=== PATIENT | male | born 1945 | race Caucasian/White ===

== ENCOUNTER → 2018-09-13 09:01 | Outpatient (CLI) | payer MEDICARE, SELFPAY | PROVIDERS: Family Provider Internal Medicine; PCP Internal Medicine; Referring Provider Internal Medicine Pulmonary Disease; Visit Provider Internal Medicine Pulmonary Disease | DX: J45.909 Unspecified asthma, uncomplicated (principal); Z87.898 Personal history of other specified conditions | CPT/HCPCS: 87070; 87205 ==

== ENCOUNTER 2018-09-18 14:06 | Emergency (ER) | payer MEDICARE, SELFPAY ==
[2018-09-18 14:09] VITALS: BP 151/88; PULSE 63; RESP 18; TEMP 36.8; O2SAT 96; BMI 30.1
--- NOTE | 2018-09-18 14:25 | CT_ITS ---
STUDY: CT MAXILLOFACIAL SINUSES REASON FOR EXAM: Male, 72 years old. Congestion and left ear pain RADIATION DOSAGE (If Supplied By Facility): CTDIvol = ( 29.38 ) mGy, DLP = ( 672.34 ) mGycm TECHNIQUE: The patient was scanned in a multi detector CT scanner. High resolution axial imaging was performed without the administration of intravenous contrast material. Sagittal and coronal images were reconstructed. Individualized dose optimization techniques were used for this CT. COMPARISON: None. FINDINGS: FRONTAL SINUSES: Frontal sinuses are clear. ETHMOIDAL SINUSES: Partial opacification of the ethmoid sinuses with aerosolized secretions. MAXILLARY SINUSES: Air-fluid levels in the maxillary sinuses with extensive mucoperiosteal thickening and partial opacification SPHENOIDAL SINUSES: Air-fluid levels in the sphenoid sinuses with aerosolized secretions and mucosal thickening Middle ear cavities and the mastoid air cells are clear. Visualized contents demonstrate no acute abnormalities no discrete orbital mass. Rightward deviation of the nasal septum with a spur encroaching on the right inferior turbinate Calcifications in the right maxillary sinus. Calcifications in the left parotid gland. 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 Electronically Signed: Cipriano Laird, at 16:11 EDT Tel , Service support , CT/Sinus/Facial Bone
[2018-09-18] MEDS: Morphine 4 MG/ML Syringe IV (14:46)
[2018-09-18] MEDS: Ondansetron 4 MG/2 ML Vial IV (14:46)
[2018-09-18 14:57] LABS: Erythrocyte Sedimentation Rate 7 mm/hr (0-20)
[2018-09-18 15:00] LABS: Hemoglobin 14.4 g/dl (13.0-16.5); Mean Corp Hgb Conc 32.7 g/gl (32-36); Mean Corpuscular Hgb 29.1 pg (27.0-32.0); Mean Corpuscular Volume 89.1 fL (80-94); Mean Platelet Vol. 11.4 fl (6.2-12.0); Platelet Count 206 K/mm3 (150-450); RBC Distribution Width SD 42.1 fl (35.1-43.9); Red Blood Count 4.94 M/mm3 (4.6-6.2); Scan Indicated on CBC? Y/N NO; White Blood Count 9.6 K/mm3 (4.4-11.0)
--- NOTE | 2018-09-18 16:32 | ED.VISSUMM ---
- ER Visit Summary Date of Service: 09/18/18 Chief Complaint: Face pain History of Present Illness: The patient is a 72 M with left face pain. No tenderness over the TMJ. No tenderness over the mastoid, he has been treated with doxycycline for an upper respiratory infection over the past few weeks. No fever chills shortness of breath or any other symptoms. Physical Examination: His tenderness is over the face region below the TMJ, there is no mastoid tenderness. He has a normal posterior oropharynx except for some postnasal drip. He has rhinorrhea and swollen nasal turbinates. He has got clear lungs bilaterally Emergency Department Course and Treatment: CT is consistent with pansinusitis which proved my clinical suspicion. He was on doxycycline however I believe this is inadequate for pansinusitis and an elderly gentleman. I will also follow him up with ear nose and throat. Placed on Augmentin. Disposition: Discharge stable condition Impression: Sinusitis This note was generated with [employer] dictation software. It may contain incorrect words, spelling, and punctuation that were not noted in review of the chart prior to signing ED Disposition - Plan for ED Patient: Disposition: Home or Assisted Living Instructions: Acute Sinusitis Prescriptions: Hydrocodone Bitart/Apap 5-325 [[place] 5MG-325MG] 1 tab PO Q4H PRN PRN 2 Days #10 tab PRN Reason: Pain Amox/Clavulanate Tablet [Augmentin Tablet] 875 mg PO Q12H #20 tab Referrals: Lissette Ledesma MD [Primary Care Provider] - 3-5 Days Suresh De La Cruz MD [STAFF PHYSICIAN] - 3-5 Days
--- NOTE | 2018-09-18 16:35 | ED.DCSUM_ITS ---
- ER Visit Summary Date of Service: 09/18/18 Chief Complaint: Face pain History of Present Illness: The patient is a 72 M with left face pain. No tenderness over the TMJ. No tenderness over the mastoid, he has been treated with doxycycline for an upper respiratory infection over the past few weeks. No fever chills shortness of breath or any other symptoms. Physical Examination: His tenderness is over the face region below the TMJ, there is no mastoid tenderness. He has a normal posterior oropharynx except for some postnasal drip. He has rhinorrhea and swollen nasal turbinates. He has got clear lungs bilaterally Emergency Department Course and Treatment: CT is consistent with pansinusitis which proved my clinical suspicion. He was on doxycycline however I believe this is inadequate for pansinusitis and an elderly gentleman. I will also follow him up with ear nose and throat. Placed on Augmentin. Disposition: Discharge stable condition Impression: Sinusitis This note was generated with [employer] dictation software. It may contain incorrect words, spelling, and punctuation that were not noted in review of the chart prior to signing ED Disposition - Plan for ED Patient: Disposition: Home or Assisted Living Instructions: Acute Sinusitis Prescriptions: Hydrocodone Bitart/Apap 5-325 [[place] 5MG-325MG] 1 tab PO Q4H PRN PRN 2 Days #10 tab PRN Reason: Pain Amox/Clavulanate Tablet [Augmentin Tablet] 875 mg PO Q12H #20 tab Referrals: Lissette Ledesma MD [Primary Care Provider] - 3-5 Days Suresh De La Cruz MD [STAFF PHYSICIAN] - 3-5 Days
[2018-09-18] MEDS: oxyCODONE 5 MG Tablet PO (17:08)
[2018-09-18 17:17] VITALS: BP 174/92; PULSE 81; RESP 18; O2SAT 94
== END 2018-09-18 17:18 | disposition home or self-care (01) ==
PROVIDERS: Emergency Provider Emergency Medicine; Family Provider Internal Medicine; PCP Internal Medicine
DX: J32.4 Chronic pansinusitis (principal); J84.10 Pulmonary fibrosis, unspecified; Z79.2 Long term (current) use of antibiotics; Z79.51 Long term (current) use of inhaled steroids; Z79.899 Other long term (current) drug therapy
CPT/HCPCS: 70486; 85027; 85652; 96374; 96375; 99284; A4216; J2405

== ENCOUNTER → 2018-12-07 07:51 | Outpatient (CLI) | payer MEDICARE, SELFPAY ==
[2018-12-07 10:25] LABS: Hemoglobin 14.8 g/dl (13.0-16.5); Mean Corp Hgb Conc 32.9 g/gl (32-36); Mean Corpuscular Hgb 28.5 pg (27.0-32.0); Mean Corpuscular Volume 86.5 fL (80-94); Mean Platelet Vol. 11.5 fl (6.2-12.0); Platelet Count 200 K/mm3 (150-450); RBC Distribution Width CV 13.3 % (11.6-14.6); RBC Distribution Width SD 41.2 fl (35.1-43.9); White Blood Count 7.1 K/mm3 (4.4-11.0)
[2018-12-07 10:26] LABS: Scan Indicated on CBC? Y/N NO
[2018-12-07 10:44] LABS: Hemoglobin A1c 5.5 % (4.2-6.3)
[2018-12-07 10:54] LABS: Homocysteine 10.9 umol/L (3.2-10.7)
[2018-12-07 11:22] LABS: Progesterone Level 0.14 ng/mL (See Comment); Vitamin B12 384 pg/mL (211-911); Vitamin D,25 Hydroxy 13.4 ng/mL (29.95-100.01)
[2018-12-07 11:37] LABS: AST(SGOT) 24 U/L (15-37); Alanine Aminotransfer ALT/SGPT 36 U/L (16-61); Albumin, Serum 3.6 g/dL (3.2-5.0); Alkaline Phosphatase 82 U/L (45-117); Anion Gap 7 (5-15); BUN 18 mg/dL (7-18); BUN/Creat Ratio 16.5 RATIO (10-20); CRP, High Sensitivity Cardiac 1.29 mg/L; Calcium,Total 8.7 mg/dL (8.5-10.1); Chloride 104 mmol/L (98-107); Cholesterol 195 mg/dL (200); Creatinine, Serum 1.09 mg/dL (0.70-1.30); EST Glomerular Filtration Rate 71 mL/min (>60); Est Glom Filt Rate - Afr Amer 86 mL/min (>60); Estradiol 29.7 pg/mL; Follicle Stimulating Hormone 4.7 mIU/mL; Free T3 2.2 pg/mL (2.18-3.98); Globulin 3.5 g/dL (2.2-4.2); Glucose 85 mg/dL (74-106); High Density Lipoprotein 48 mg/dL; Iron 84 ug/dL (65-175); PSA,Total - Annual Screen 9.64 ng/mL (0.00-4.00); Potassium 3.9 mmol/L (3.5-5.1); Prolactin 10.9 ng/mL; Protein, Total 7.1 g/dL (6.4-8.2); Sodium Level 140 mmol/L (136-145); T4 Free Direct 1.12 ng/dL (0.76-1.46); T4 Total, Thyroxin 9.8 ug/dL (4.5-12.1); Thyroid Stim Hormone (TSH) 2.88 uIU/mL (0.358-3.74); Triglycerides 108 mg/dL; Very Low Density Lipoprotein 22 mg/dL (5-40)
[2018-12-12 12:07] LABS: DHEA Sulfate 53.5 ug/dL (30.9-295.6); Insulin Like Growth Factor 134 ng/mL (41-179); Testosterone, % Free 1.52 % (1.50-4.20); Testosterone, Free 5.96 ng/dL (5.00-21.00)
[2018-12-12 12:29] LABS: Sex Hormone-binding Globulin 44.8 nmol/L (19.3-76.4); Testosterone, Total 392 ng/dL (264-916)
== END ==
PROVIDERS: Family Provider Internal Medicine; PCP Internal Medicine; Referring Provider Registered Nurse; Visit Provider Registered Nurse
DX: M62.81 Muscle weakness (generalized) (principal); R53.82 Chronic fatigue, unspecified; E66.9 Obesity, unspecified
CPT/HCPCS: 36415; 80053; 80061; 82306; 82533; 82607; 82627; 82670; 82746; 83001; 83002; 83036; 83090; 83540; 83735; 84144; 84146; 84153; 84270; 84305; 84402; 84403; 84436; 84439; 84443; 84481; 85027; 86141; 82626; G0103

== ENCOUNTER → 2019-03-27 | Outpatient (CLI) | payer MEDICARE, SELFPAY ==
--- NOTE | 2019-03-27 13:08 | RAD_ITS ---
STUDY: X-RAY CHEST REASON FOR EXAM: Male, 73 years old. Shortness of breath cough TECHNIQUE: Two view of the chest were performed COMPARISON: 17 December 2016 FINDINGS: Lungs are clear. There is no pneumothorax, pulmonary edema, pleural effusions or cardiomegaly. Osseous structures are intact. There is no gas under the diaphragms. [ ] RAD/Chest PA and Lateral IMPRESSION: 1. No acute cardiorespiratory disease. [ ] Electronically Signed: Rola Boogie, at 18:47 EDT Tel , Service support ,
== END | disposition home or self-care (01) ==
LOC: MTRAD 13:05
PROVIDERS: Family Provider Internal Medicine; PCP Internal Medicine; Referring Provider Internal Medicine Pulmonary Disease; Visit Provider Internal Medicine Pulmonary Disease
DX: J45.909 Unspecified asthma, uncomplicated (principal); R05 Cough
CPT/HCPCS: 71046

== ENCOUNTER 2019-07-16 22:33 | Emergency (ER) | payer MEDICARE, SELFPAY ==
[2019-07-16 22:34] VITALS: BP 133/79; PULSE 67; RESP 16; TEMP 36.5; O2SAT 96; BMI 31.8
--- NOTE | 2019-07-16 22:54 | EKG12_ITS ---
Test Reason : ABDOMINAL PAIN Blood Pressure : / mmHG Vent. Rate : 074 BPM Atrial Rate : 074 BPM P-R Int : 270 ms QRS Dur : 094 ms QT Int : 404 ms P-R-T Axes : 070 059 062 degrees QTc Int : 448 ms Sinus rhythm with 1st degree A-V block Otherwise normal ECG Confirmed by ERASTO AGGARWAL, GIAN ([id number]), communications editor HIREN KRUGER ([id number]) on 07/18/2019 10:06:08 AM Referred By: JESSEE Confirmed By:GIAN MAURER MD
--- NOTE | 2019-07-16 22:55 | ED.VISSUMM ---
- ER Visit Summary Date of Service: 07/16/19 Chief Complaint: Upper abdominal pain History of Present Illness: The patient is a 73 M past medical history of allergies and decreased lung capacity is aware he will wears oxygen at night. Denies any prior abdominal surgeries. States he had [place] food around 4 PM tonight. Said around 430 started getting mild epigastric burning discomfort. Progressively worsened at 6:30 PM and again at 9 PM. No associated nausea or vomiting. No diarrhea or fever. No melena. No constipation. No dysuria. Said he had a recent weight loss but he has been intentionally trying to lose weight. He denies any back pain. No chest pain. No shortness of breath. No recent exertional chest pain or shortness of breath. States he drank a carbonated beverage she burped a lot but that did not improve his symptoms. Physical Examination: Older male no acute distress vital signs are stable afebrile. H EENT exam unremarkable. Moist with membranes. Neck nontender no lymphadenopathy. Lungs clear to auscultation bilaterally. Heart regular rhythm no murmur. Abdomen is soft. Mild tenderness epigastric. No rebound, guarding or rigidity. No Lomas sign. No McBurney's tenderness. No signs of obstruction. No hernia or masses. No pulsatile mass. Normal bowel sounds. Patient is moving all 4 extremities. No edema. Back nontender. Neurologically is awake and alert. Test Results: CBC shows a white count of 13.8. Normal hemoglobin at 15 no bands. Chemistries unremarkable creatinine 1.48. Liver enzymes total bilirubin slightly elevated 1.4 direct 0.3 on prior labs his total bilirubin has been the same number in the past. Normal lipase. Normal troponin. EKG sinus rhythm rate of 74 with a first-degree AV block unchanged from prior EKG from 2012. Emergency Department Course and Treatment: Patient with upper abdominal pain after [place] food. This could be as simple as reflux versus other etiologies such as gallbladder disease, pancreatitis or gastritis. Labs to be done. Clinically I do not think it is cardiac but due to it being his upper epigastric region I will obtain an EKG and troponin. Patient treated with GI cocktail and p.o. Protonix. Repeat exam at 000 5 AM. Patient is doing well. He threw up once. His pain is completely resolved. Repeat abdominal exam completely benign and nontender. Right upper quadrant and right lower quadrant completely nontender. He is nondistended. He has normal bowel sounds. Treatment Plan: Protonix for home. Follow-up if not improving or return if worse. Disposition: dc Impression: Acute upper abdominal pain secondary to gastritis This note was generated with [employer] dictation software. It may contain incorrect words, spelling, and punctuation that were not noted in review of the chart prior to signing ED Disposition - Plan for ED Patient: Referrals: Lissette Ledesma MD [Primary Care Provider] -
[2019-07-16] MEDS: Pantoprazole Sodium 40 MG Tablet PO (23:02)
[2019-07-16] MEDS: Mag Hydrox/Al Hydrox/Simeth 30 ML UDC PO (23:02)
[2019-07-16 23:25] LABS: Absolute Neutrophil Count 11.8 X10^3/uL (2.0-7.7); Basophil# 0.04 X10^3/uL; Basophil% 0.3 % (0-1); Eosinophils% 0.7 % (0-5); Hematocrit 48.3 % (40-54); Hemoglobin 15.8 g/dL (13.0-16.5); Mean Corp Hgb Conc 32.7 g/dL (32-36); Mean Corpuscular Hgb 28.5 pg (27.0-32.0); Mean Corpuscular Volume 87.2 fL (80-94); Mean Platelet Vol. 11.5 fl (6.2-12.0); Monocyte% 5.8 % (0-10); NRBC Flagged by Analyzer 0 % (0-5); Neutrophil # 11.75 X10^3/uL (2.7-7.7); Neutrophil % 84.9 % (47-70); Platelet Count 225 K/mm3 (150-450); RBC Distribution Width CV 12.6 % (11.6-14.6); RBC Distribution Width SD 39.8 fl (35.1-43.9); Red Blood Count 5.54 M/mm3 (4.6-6.2); White Blood Count 13.8 K/mm3 (4.4-11.0)
[2019-07-16 23:35] LABS: AST(SGOT) 26 U/L (15-37); Alanine Aminotransfer ALT/SGPT 27 U/L (16-61); Albumin, Serum 4.1 g/dL (3.2-5.0); Alkaline Phosphatase 85 U/L (45-117); Anion Gap 6 (5-15); BUN 23 mg/dL (7-18); BUN/Creat Ratio 15.5 RATIO (10-20); Bilirubin, Direct 0.31 mg/dL (0.00-0.30); Calcium,Total 9.5 mg/dL (8.5-10.1); Chloride 102 mmol/L (98-107); Creatinine, Serum 1.48 mg/dL (0.70-1.30); EST Glomerular Filtration Rate 50 mL/min (>60); Est Glom Filt Rate - Afr Amer 60 mL/min (>60); Estimated Creatinine Clearance 47.27 ml/min; Globulin 3.8 g/dL (2.2-4.2); Glucose 179 mg/dL (74-106); Lipase 126 U/L (73-393); Protein, Total 7.9 g/dL (6.4-8.2); Sodium Level 137 mmol/L (136-145)
[2019-07-16] MEDS: Ondansetron 4 MG/2 ML Vial IV (23:44)
--- NOTE | 2019-07-17 00:11 | DCINST.ED_ITS ---
ED Disposition - Plan for ED Patient: Disposition: Home or Assisted Living Instructions: GASTRITIS (Adult) Prescriptions: Pantoprazole Sodium [Protonix] 20 mg PO DAILY #20 tab Prescription Printed Referrals: Lissette Ledesma MD [Primary Care Provider] - 3-5 Days if not improving Additional Instructions: I suspect you have irritation of your stomach such as gastritis from the [place] food. Protonix or Prilosec or Zantac once daily for up to the next 20 days you may not need it that long. If you are not having any symptoms after several days you may stop the medication. Follow-up with your doctor if not improving or return to ER if you are feeling worse such as increasing pain, fever or black or bloody stool.
[2019-07-17 00:18] VITALS: BP 131/74; PULSE 81; RESP 18; O2SAT 98
--- NOTE | 2019-07-17 00:20 | ED.RN ---
THIS NURSE REVIEWED D/C INSTRUCTIONS WITH PT. PT VERBALIZED UNDERSTANDING OF INSTRUCTIONS. IV D/C. IV CATHETER INTACT. PT TOLERATED WELL. PT DENIES FURTHER NEEDS OR QUESTIONS AT THIS TIME. PT AMBULATES FROM ROOM ON OWN WITHOUT ASSISTANCE FROM STAFF
== END 2019-07-17 00:21 | disposition home or self-care (01) ==
PROVIDERS: Emergency Provider Emergency Medicine; Family Provider Internal Medicine; PCP Internal Medicine
DX: K29.70 Gastritis, unspecified, without bleeding (principal); R10.10 Upper abdominal pain, unspecified
CPT/HCPCS: 80048; 80076; 83690; 84484; 85025; 93005; 96374; 99284; A4216; J2405

== ENCOUNTER → 2019-09-13 | Outpatient (CLI) | payer MEDICARE, SELFPAY ==
--- NOTE | 2019-09-13 15:57 | RAD_ITS ---
STUDY: X-RAY CHEST REASON FOR EXAM: Male, 73 years old. Cough, hx of GLORIA TECHNIQUE: Frontal and lateral views COMPARISON: March 27, 2019 FINDINGS: The lungs are expanded. Mild basilar interstitial prominence bilaterally. Normal size heart. Normal mediastinum and avis. Normal visualized pulmonary arteries. Normal visualized aortic arch and descending thoracic aorta. Normal visualized thoracic spine. Normal visualized ribs, clavicles, and shoulders. There is no demonstrated abnormality of the visualized soft tissue structures of the upper abdomen. RAD/Chest PA and Lateral IMPRESSION: Mild basilar interstitial prominence. Electronically Signed: Sarabjit Andrew DO at 23:54 EDT Tel [phone], Service support ,
== END | disposition home or self-care (01) ==
PROVIDERS: PCP Internal Medicine; Referring Provider Internal Medicine Pulmonary Disease; Visit Provider Internal Medicine Pulmonary Disease
DX: R05 Cough (principal)
CPT/HCPCS: 71046; 87015; 87116; 87206

== ENCOUNTER 2019-10-11 13:03 | Emergency (ER) | payer MEDICARE, SELFPAY ==
[2019-10-11 13:05] VITALS: BP 119/77; PULSE 91; PULSE 96; RESP 18; TEMP 36.6; O2SAT 92; BMI 28.8
--- NOTE | 2019-10-11 13:26 | RAD_ITS ---
STUDY: X-RAY CHEST REASON FOR EXAM: Male, 73 years old. Increasing shortness of breath x 10 days TECHNIQUE: Single AP portable view of the chest. COMPARISON: Comparison is made with prior study dated September 13, 2019. FINDINGS: EKG electrodes are seen. Hyperinflation. Stable minimal increased markings at the left lung base suggestive of mild scarring. There is no demonstrated pleural abnormality. Normal size heart. Normal mediastinum and avis. Normal visualized pulmonary arteries. Normal visualized aortic arch and descending thoracic aorta. There are degenerative changes of the visualized thoracic spine. Normal visualized ribs, clavicles, and shoulders. There is no demonstrated abnormality of the visualized soft tissue structures of the upper abdomen. RAD/Chest 1 View (Portable) IMPRESSION: No acute abnormality is seen. Electronically Signed: Cisco Orlando, at 14:18 EDT , Service support ,
--- NOTE | 2019-10-11 13:27 | EKG12_ITS ---
Test Reason : Blood Pressure : / mmHG Vent. Rate : 088 BPM Atrial Rate : 088 BPM P-R Int : 224 ms QRS Dur : 096 ms QT Int : 368 ms P-R-T Axes : 079 064 064 degrees QTc Int : 445 ms Sinus rhythm with 1st degree A-V block Otherwise normal ECG Confirmed by JORDY AGGARWAL, MIKA ([id number]), associate entertainment editor MIKE LEONARD ([id number]) on 10/13/2019 9:34:47 AM Referred By: GUS Confirmed By:RUSTY SPENCE MD
--- NOTE | 2019-10-11 13:30 | ED.VIS.GEN ---
History of Present Illness Chief Complaint: Shortness of Breath Informant: Patient Onset: Weeks Context: Gradual Onset Current Severity: Mild Maximum Severity: Moderate Narrative: Patient present secondary shortness of breath, worse with exertion. He states he is had progressive shortness of breath for quite some time and has followed with Dr. Piper. He wears oxygen via nasal cannula at night. He states for the past week or week and a half he has been getting short of breath with minimal exertion. He reports some tense sensation in his chest when he gets out of air. He has had some increased head congestion and mucus. He spoke with his ENT doctor yesterday who was more concerned about a possible cardiac etiology of his shortness of breath. Patient states he called his PCP and referral was made to [facility], however he was concerned he would not be able to be seen for several weeks he did not feel he could wait that long. Patient denies orthopnea or leg swelling. No known history of cardiac disease. Past Medical History - Allergies and Home Meds Allergies/Adverse Reactions: Allergies No Known Allergies Allergy (Verified 10/11/19 13:04) Primary Care Physician: Lissette Ledesma MD [Primary Care Provider] - Past Medical History: - - Allergies, decreased lung capacity Smoking Status: Never smoker Review of Systems General: Denies: Chills, Fever Eyes: Denies: Visual changes - bilaterally ENT: Denies: Bilateral ear pain Cardiovascular: Reports: Chest pain - Tense sensation in chest when short of breath Respiratory: Reports: Dyspnea. Denies: Cough Gastrointestinal: Denies: Abdominal pain, Nausea, Vomiting, Diarrhea Genitourinary: Denies: Dysuria Musculoskeletal: Denies: Swelling, Extremity Pain Skin: Denies: Rash Hematologic: Denies: Easy bruising, Easy bleeding Allergy: Denies: Uticaria Physical Exam Vital Signs/Narrative: Vital Signs Temp Pulse Resp BP Pulse Ox 10/11/19 13:05 97.9 F 91 18 119/77 92 Inital Vital Signs reviewed: Yes General: Well nourished, Well developed Head: Normocephalic ENT: Moist mucous membranes Neck: Supple Cardiovascular: Regular rate, Regular rhythm Respiratory: No distress, CTA bilaterally Abdomen: Soft, Nontender, Nondistended Extremities: Nontender Skin: Normal color Neurological: Alert, Oriented x3 Psychological: Normal affect Diagnostic/Tx/Re-eval Impressions Chest X-Ray 10/11/19 13:26 IMPRESSION: No acute abnormality is seen. Electronically Signed: Cisco Orlando, at 14:18 EDT , Service support , 10/11/19 13:26 Chest 1 View (Portable) [RAD] Stat Laboratory Results 10/11/19 10/11/19 10/11/19 13:45 13:45 13:45 WBC 6.7 RBC 5.35 Hgb 15.0 Hct 46.6 MCV 87.1 MCH 28.0 MCHC 32.2 RDW Std Deviation 42.5 RDW Coeff of Kelsy 13.3 Plt Count 229 MPV 10.6 Immature Gran % (Auto) 0.300 Neut % (Auto) 65.8 Lymph % (Auto) 18.7 L [place] % (Auto) 10.6 H Eos % (Auto) 3.9 Baso % (Auto) 0.7 Absolute Neuts (auto) 4.4 Absolute Lymphs (auto) 1.25 Nucleated RBC % 0 D-Dimer Quant (PE/DVT) Sodium 138 Potassium 3.9 Chloride 105 Carbon Dioxide 29.0 Anion Gap 4 L BUN 15 Creatinine 1.22 Estim Creat Clear Calc 57.34 Est GFR (MDRD) Af Amer 75 Est GFR (MDRD) Non-Af 62 BUN/Creatinine Ratio 12.3 Glucose 142 H Calcium 9.5 Troponin I < 0.015 B-Natriuretic Peptide 19.1 10/11/19 13:45 WBC RBC Hgb Hct MCV MCH MCHC RDW Std Deviation RDW Coeff of Kelsy Plt Count MPV Immature Gran % (Auto) Neut % (Auto) Lymph % (Auto) [place]itt % (Auto) Eos % (Auto) Baso % (Auto) Absolute Neuts (auto) Absolute Lymphs (auto) Nucleated RBC % D-Dimer Quant (PE/DVT) 0.33 Sodium Potassium Chloride Carbon Dioxide Anion Gap BUN Creatinine Estim Creat Clear Calc Est GFR (MDRD) Af Amer Est GFR (MDRD) Non-Af BUN/Creatinine Ratio Glucose Calcium Troponin I B-Natriuretic Peptide - EKG Initial EKG Interpretation: Sinus Rhythm - Sinus at 88 with first-degree AV block. No acute ischemia. - Medical Decision Making Patient's O2 sat is 92% on room air. Test results are discussed with him. We did get him up and ambulate down the mohamud and back. While checking his pulse ox he remained 92 to 93%. Patient then went to the restroom and upon returning to the room had an O2 sat of 87% which quickly corrected with rest. Patient does have O2 at home that he can wear during the day as needed. I did speak with Dr. Clemons, on-call for cardiology to help arrange close follow-up. He states that if the patient can call the office tomorrow morning they will see him as soon as possible. Patient was given instructions to return if symptoms worsen or new concerns arise. ED Disposition - Plan for ED Patient: Disposition: Home or Assisted Living Diagnosis: Dyspnea Instructions: ED Dyspnea Referrals: Henok Clemons MD [STAFF PHYSICIAN] - As soon as possible
[2019-10-11 13:42] VITALS: O2SAT 94
[2019-10-11 13:52] LABS: Absolute Lymphocyte Count 1.25 X10^3/uL (0.83-4.51); Absolute Neutrophil Count 4.4 X10^3/uL (2.0-7.7); Basophil# 0.05 X10^3/uL; Basophil% 0.7 % (0-1); Eosinophil# 0.26 X10^3/uL; Eosinophils% 3.9 % (0-5); Hematocrit 46.6 % (40-54); Lymphocyte # 1.25 X10^3/ul (4.0); Lymphocyte % 18.7 % (19-41); Mean Corp Hgb Conc 32.2 g/dL (32-36); Mean Corpuscular Volume 87.1 fL (80-94); Mean Platelet Vol. 10.6 fl (6.2-12.0); Monocyte# 0.71 X10^3/uL; Monocyte% 10.6 % (0-10); NRBC Flagged by Analyzer 0 % (0-5); Neutrophil # 4.41 X10^3/uL (2.7-7.7); Neutrophil % 65.8 % (47-70); Platelet Count 229 K/mm3 (150-450); RBC Distribution Width CV 13.3 % (11.6-14.6); RBC Distribution Width SD 42.5 fl (35.1-43.9); Red Blood Count 5.35 M/mm3 (4.6-6.2); White Blood Count 6.7 K/mm3 (4.4-11.0)
[2019-10-11 14:12] LABS: Anion Gap 4 (5-15); BUN 15 mg/dL (7-18); BUN/Creat Ratio 12.3 RATIO (10-20); Calcium,Total 9.5 mg/dL (8.5-10.1); Chloride 105 mmol/L (98-107); Creatinine, Serum 1.22 mg/dL (0.70-1.30); EST Glomerular Filtration Rate 62 mL/min (>60); Est Glom Filt Rate - Afr Amer 75 mL/min (>60); Estimated Creatinine Clearance 57.34 ml/min; Glucose 142 mg/dL (74-106); Potassium 3.9 mmol/L (3.5-5.1); Sodium Level 138 mmol/L (136-145)
[2019-10-11 14:13] LABS: BNP,B-Type NATRIURETIC PEPTIDE 19.1 pg/mL (0-100)
[2019-10-11 14:28] LABS: D-Dimer Quantitative (DVT/PE) 0.33 FEU/ug/m (0.27-0.49)
[2019-10-11 14:44] VITALS: O2SAT 92
[2019-10-11 15:02] VITALS: BP 135/63; PULSE 84; RESP 16; O2SAT 92
[2019-10-11 15:10] VITALS: BP 135/63; PULSE 87; RESP 16; O2SAT 91
== END 2019-10-11 15:10 | disposition home or self-care (01) ==
PROVIDERS: Emergency Provider Emergency Medicine; PCP Internal Medicine
DX: R06.00 Dyspnea, unspecified (principal)
CPT/HCPCS: 71045; 80048; 83880; 84484; 85025; 85379; 93005; 99284; A4216

== ENCOUNTER → 2019-10-19 | Outpatient (CLI) | payer MEDICARE, SELFPAY ==
[2019-10-11 13:05] VITALS: BMI 28.8
--- NOTE | 2019-10-19 06:50 | ECHOD_ITS ---
Reason For Study: COTE Procedure This was a 2D Doppler, Color Flow transthoracic echocardiogram. Exam performed in department. Left Ventricle Normal LV size. The estimated ejection fraction is 60 %. No evidence for diastolic dysfunction. No regional wall motion abnormalities noted. Right Ventricle Normal RV size. Normal systolic function. Atria Normal left atrium. Normal right atrium. No doppler evidence for ASD. Mitral Valve There is no mitral valve stenosis. Trivial mitral valve insufficiency. Tricuspid Valve There is no tricuspid stenosis. Trivial tricuspid valve insufficiency. Pulmonary artery systolic pressure is 40-45 mmHg. Aortic Valve Trisinus/trileaflet aortic valve. There is no aortic stenosis. No aortic valve insufficiency. Pulmonic Valve There is no pulmonic valvular stenosis. No pulmonic valve insufficiency. Great Vessels Normal aortic root. Pericardium/Pleural No pericardial effusion. MMode/2D Measurements & Calculations LVIDd: 4.9 cm IVSd: 0.81 cm Ao root diam: 3.2 cm LVIDs: 3.3 cm LVPWd: 0.75 cm RVDd: 3.5 cm FS: 32.2 % LAV(MOD-bp): 41.8 ml EDV(MOD-sp4): 80.7 ml EDV(MOD-sp2): 85.2 ml LAV(MOD-bp) Indexed: 20.1 ml/m2 ESV(MOD-sp4): 29.0 ml EF(MOD-sp2): 56.6 % LAV(MOD-sp2): 44.7 ml EF(MOD-sp4): 64.0 % LAV(MOD-sp4): 34.4 ml SV(MOD-sp4): 51.7 ml SV(MOD-sp2): 48.2 ml LA A4 area: 13.7 cm2 LA dimension(2D): 3.2 cm RA A4 area: 12.2 cm2 Doppler Measurements & Calculations MV E max oscar: 56.2 cm/sec Lat Peak E' Oscar: 8.9 cm/sec Med Peak E' Oscar: 9.6 cm/sec MV A max oscar: 65.7 cm/sec E/E' lat: 6.3 E/E' med: 5.8 MV E/A: 0.86 Ao V2 max: 113.7 cm/sec LV V1 max: 91.9 cm/sec PA V2 max: 63.3 cm/sec Ao max P.2 mmHg LV V1 max P.4 mmHg TR max oscar: 300.9 cm/sec TR max P.3 mmHg Interpretation Summary The estimated ejection fraction is 60 %. No evidence for diastolic dysfunction. Trivial mitral valve insufficiency. Pulmonary artery systolic pressure is 40-45 mmHg. Ordering Physician: Henok Clemons Referring Physician: Lissette Ledesma M.D. Performed By: Moon Jay RDCS
--- NOTE | 2019-10-19 11:15 | STRESSREP_ITS ---
Stress Test Report Date: 10/19/2019 Procedure: Pharmacologic stress nuclear imaging study Indications: Shortness of breath Consent: Per the patient Procedure: The patient underwent pharmacologic (Regadenoson) evaluation with a peak heart rate of 97 beats per minute (65 %predicted maximal heart rate) and a peak blood pressure of 110/72 mmHg. The baseline ECG demonstrated normal sinus rhythm, nonspecific ST-T changes. EKG during lexiscan infusion revealed no significant ischemic changes. EKG post infusion revealed no significant ischemic changes [There were no cardiac dysrhythmias pretest, during pharmacologic infusion, or recovery]. [There was no complaint of chest discomfort during pharmacologic infusion or recovery]. The examination was discontinued secondary to completion of protocol. Impression: 1. Lexiscan stress test test is negative for Lexiscan infusion induced EKG changes of ischemia. 2. Lexiscan stress test test is negative for Lexiscan infusion induced chest pain. 3. Results of the nuclear portion of the test is as below Myocardial perfusion imaging study: Technique: The patient was injected with 12 millicuries of technetium 99m Cardiolite and subsequently rest SPECT Cardiolite nuclear imaging was obtained in the horizontal long, vertical long, and short axis views. The patient underwent pharmacologic (Regadenoson) evaluation. Please see above for details. The patient was injected with 36 millicuries of technetium 99m Cardiolite and subsequently stress SPECT Cardiolite nuclear imaging was obtained in the horizontal long, vertical long, and short axis views. A gated Cardiolite study at peak stress was obtained. Interpretation: Rest and stress SPECT Cardiolite nuclear imaging status post realignment, normalization, and attenuation correction demonstrate overall normal myocardial radioisotope uptake after attenuation correction. Gated images reveal no significant regional wall motion abnormalities. The reported LVEF is 59 %. Impression: 1. There is no evidence of significant ischemia or infarction. 2. Estimated ejection fraction is 59%. This note was generated with [employer] software. It may contain incorrect words, spelling, and punctuation that were not noted in checking the note before signing.
== END | disposition home or self-care (01) ==
LOC: CVS 06:50
PROVIDERS: PCP Internal Medicine; Referring Provider Specialist; Visit Provider Specialist
DX: R06.02 Shortness of breath (principal)
CPT/HCPCS: 78452; 93017; 93306; A9500; A4216; J2785

== ENCOUNTER → 2019-10-26 08:16 | Outpatient (CLI) | payer MEDICARE, SELFPAY ==
[2019-10-23 11:28] VITALS: BMI 28.8
--- NOTE | 2019-10-26 08:19 | CT_ITS ---
STUDY: CT CHEST WITHOUT CONTRAST REASON FOR EXAM: Male, 73 years old. PULMONARY INFECTION, COUGH, SCAR TISSUE RADIATION DOSAGE (If Supplied By Facility): CTDIvol = ( 12.94 ) mGy, DLP = ( 511.05 ) mGycm TECHNIQUE: Transaxial imaging was performed without the administration of intravenous contrast material. Multiplanar coronal and sagittal images were reformatted. Individualized dose optimization techniques were used for this CT. COMPARISON: Comparison is made with prior study dated December 17, 2016. FINDINGS: Small benign-appearing bilateral axillary lymph nodes. There now is evidence of geographic areas of the groundglass appearance in both upper lobes as well as in the medial aspect of the right middle lobe and left lower lobe. This was not seen on prior study. There is no demonstrated pleural abnormality. There are calcifications of the coronary arteries. Normal mediastinum. Normal hilar regions. Normal unenhanced pulmonary arteries. There is atherosclerotic calcification of the aortic arch. There are degenerative changes of the thoracic spine. Small hiatal hernia. CT/Chest without Contrast IMPRESSION: Geographic areas of bone ground glass appearance in both lungs as described. Follow-up is recommended. Electronically Signed: Cisco Orlando, at 9:29 EDT , Service support ,
== END ==
PROVIDERS: PCP Internal Medicine; Referring Provider Internal Medicine Pulmonary Disease; Visit Provider Internal Medicine Pulmonary Disease
DX: A31.0 Pulmonary mycobacterial infection (principal)
CPT/HCPCS: 71250

== ENCOUNTER → 2019-12-07 | Outpatient (CLI) | payer MEDICARE, SELFPAY ==
[2019-10-23 11:28] VITALS: BMI 28.8
== END | disposition home or self-care (01) ==
LOC: LABSPEC 08:19
PROVIDERS: PCP Internal Medicine; Referring Provider Internal Medicine Pulmonary Disease; Visit Provider Internal Medicine Pulmonary Disease
DX: J45.909 Unspecified asthma, uncomplicated (principal)
CPT/HCPCS: 87015; 87070; 87077; 87116; 87186; 87205; 87206

== ENCOUNTER 2021-07-09 08:20 | Outpatient (CLI) | payer MEDICARE, SELFPAY ==
--- NOTE | 2021-07-09 08:25 | CT_ITS ---
STUDY: CT LEFT LOWER EXTREMITY WITHOUT CONTRAST REASON FOR EXAM: Left knee osteoarthritis, surgical planning. TECHNIQUE: Transaxial CT imaging of the lower extremity was performed. Coronal and sagittal images were reformatted. Individualized dose optimization techniques were used for this CT. COMPARISON: None. FINDINGS: Knee: There are marginal osteophytes and joint space narrowing of the medial femorotibial compartment (coronal reconstruction 31). There are marginal osteophytes with preservation of joint space of the lateral femorotibial compartment. There are marginal osteophytes and joint space narrowing of the patellofemoral compartment (axial image 370). Normal proximal tibiofibular articulation. There is a small joint effusion. The quadriceps tendon is grossly normal. The patellar tendon is grossly normal. Normal Hoffa''s fat pad. There is chondrocalcinosis. Hip: There is joint space narrowing of the superior lateral left hip joint and a subchondral cyst of the lateral acetabulum (coronal reconstructions 81). There is enlargement of the prostate (coronal reconstruction 67). Ankle: There are small anterior osteophytes of the tibiotalar articulation with preservation of joint space. There is a small posterior tibiotalar intra-articular body (sagittal reconstruction 22). Normal talonavicular, posterior subtalar and visualized calcaneocuboid articulations. There is a small posterior calcaneal enthesophyte. There is ossification in the distal tibiofibular syndesmosis from remote injury (coronal reconstructions 32-34). There are small ossifications in the deltoid ligament. CT/Extremity Lower without Contra IMPRESSION: Left knee osteoarthritis. Electronically Signed: Jericho Hennessy MD at 14:58 EST Tel , Service support ,
== END 2021-07-09 23:59 | disposition short-term general hospital (02) ==
LOC: CT 08:22
PROVIDERS: PCP Internal Medicine; Referring Provider Orthopaedic Surgery; Visit Provider Orthopaedic Surgery
DX: M17.12 Unilateral primary osteoarthritis, left knee (principal)
CPT/HCPCS: 73700

== ENCOUNTER 2021-07-18 11:21 | Outpatient (CLI) | payer MEDICARE, SELFPAY ==
--- NOTE | 2021-07-18 11:25 | RAD_ITS ---
STUDY: X-RAY CHEST REASON FOR EXAM: Male, 75 years old. PRE OP WASC TECHNIQUE: PA and lateral views of the chest. COMPARISON: Comparison is made with prior study dated 10/11/2019. FINDINGS: Hyperinflation. The lungs are clear. There is no demonstrated pleural abnormality. Normal size heart. Normal mediastinum and avis. Normal visualized pulmonary arteries. Normal visualized aortic arch and descending thoracic aorta. There are degenerative changes of the visualized thoracic spine. Normal visualized ribs, clavicles, and shoulders. There is no demonstrated abnormality of the visualized soft tissue structures of the upper abdomen. RAD/Chest PA and Lateral IMPRESSION: Hyperinflation. The lungs are clear. Electronically Signed: Cisco Orlando MD at 12:52 EST , Service support ,
== END 2021-07-18 23:59 | disposition short-term general hospital (02) ==
LOC: RAD 11:23
PROVIDERS: PCP Internal Medicine; Referring Provider Orthopaedic Surgery; Visit Provider Orthopaedic Surgery
DX: Z01.811 Encounter for preprocedural respiratory examination (principal); I10 Essential (primary) hypertension
CPT/HCPCS: 71046

== ENCOUNTER 2021-07-23 14:59 | Outpatient (CLI) | payer MEDICARE, SELFPAY ==
--- NOTE | 2021-07-23 | KNEE_PTH ---
PATIENT: LUIS GUERRERO LOC: [facility] U#:[id number] AGE/SX: 75/M ROOM: RE07/23/[address]: Dr. Luis Dumas DO : 1945 BED: DIS: 07/23/2021 SPEC #: [id number] RECD: 07/23/21 14:54 STATUS: SATHISH REMarcos #: [id number] JAQUELIN: 07/23/21 00:[address]: Luis Dumas DEPT: SURGICAL PATHOLOGY RECD BY: Jake Persaud ENTERED: 07/24/21 12:19 SP TYPE: TOTAL KNEE OTHR DR: Dr. Lissette Ledesma MD [facility] Tissues: Knee, NOS Procedures: Decalcification bone/plaque Surgery Specimen Level IV HEADER OPERATION: Robotic assisted left total knee arthroplasty PRE-OP DIAGNOSIS: Grade 4 osteoarthritis left knee TISSUE SUBMITTED: Bone and soft tissue left knee MICROSCOPIC DIAGNOSIS Bone and tissue of left knee, total knee resection: Severe degenerative joint disease. Mild synovial hyperplasia. AM:flaquito 07/28/2021 MICROSCOPIC DESCRIPTION Slides are reviewed. GROSS DESCRIPTION Received is one container designated bone and soft tissue left knee. The specimen consists of multiple fragments of rosen-yellow bone measuring in aggregate 10 x 10 x 4 cm. Also in the specimen container are multiple fragments of yellow-white soft tissue measuring in aggregate 10 x 7 x 3 cm. A number of bony fragments contain articular surfaces consistent with tibial plateau and femoral condyle and displaying prominent osteophyte formation, eburnation and bone erosion. The articular surface shows focal area of brownish-black discoloration. Professor [employer] sections are submitted in two cassettes as follows: 1 - soft tissue, 2 - bone after decalcification. / SJ:flaquito 07/24/2021 TC:5 [facility]: [id number]
== END 2021-07-23 23:59 | disposition short-term general hospital (02) ==
LOC: LABSPEC 15:04
PROVIDERS: PCP Internal Medicine; Visit Provider Orthopaedic Surgery
DX: M17.12 Unilateral primary osteoarthritis, left knee (principal)
CPT/HCPCS: 88305; 88311

== ENCOUNTER 2021-09-08 01:46 | Emergency (ER) | payer MEDICARE, SELFPAY ==
[2021-09-08 01:47] VITALS: BP 142/84; PULSE 92; RESP 16; TEMP 36.7; O2SAT 96; BMI 31.1
--- NOTE | 2021-09-08 02:12 | CT_ITS ---
EXAM: CT ABDOMEN AND PELVIS WITH INTRAVENOUS CONTRAST : 1945 CLINICAL INDICATION: abd pain TECHNIQUE: Helically acquired images were obtained of the abdomen and pelvis with intravenous contrast. This CT exam was performed using one or more of the following dose reduction techniques: automated exposure control, adjustment of the mA and/or kV according to patient size, and/or use of iterative reconstruction technique. This report was created using [employer] report generation technology. CONTRAST: IV 100mL Isovue-370 COMPARISON: 05/30/15 FINDINGS: LOWER THORAX: Unremarkable. Lung bases are clear. No cardiomegaly. No significant pericardial effusion. ABDOMEN: LIVER: Unremarkable. Homogeneous. No focal mass. GALLBLADDER AND BILE DUCTS: Several stones in the gallbladder measuring up to 2.3 cm. No gallbladder distention or wall edema. No intra- or extrahepatic biliary ductal dilation. PANCREAS: Unremarkable. No focal cystic or solid mass. SPLEEN: Unremarkable. Normal size without focal cystic or solid mass. ADRENALS: Unremarkable. No nodules. KIDNEYS AND URETERS: Simple right renal cyst, no follow-up required. Normal renal size and position. No hydronephrosis. STOMACH AND BOWEL: Diverticular disease of the colon without diverticulitis. No stomach or bowel distention. PELVIS: APPENDIX: The appendix is normal. BLADDER: Unremarkable. REPRODUCTIVE: Mildly enlarged prostate. ABDOMEN and PELVIS: INTRAPERITONEAL SPACE: Unremarkable. No ascites or other fluid collection. No free air. BONES/JOINTS: Degenerative changes of the spine. No suspicious lytic or blastic abnormality. SOFT TISSUES: Unremarkable. No discrete abdominal or pelvic wall hernia. VASCULATURE: Unremarkable. Abdominal aorta is non-dilated. LYMPH NODES: Unremarkable. No enlarged lymph nodes. CT/Abdomen/Pelvis W IV Cont ONLY IMPRESSION: 1. No acute findings in the abdomen or pelvis. 2. Cholelithiasis. 3. Diverticular disease of the colon but no diverticulitis. Individualized dose optimization techniques were used for this CT. at 0307 Reported and signed by: Edgar Hubbard MD Electronically Signed: Edgar Hubbard MD at 3:06 EST ,
--- NOTE | 2021-09-08 02:12 | EKG12_ITS ---
Test Reason : ABD PAIN Blood Pressure : / mmHG Vent. Rate : 080 BPM Atrial Rate : 080 BPM P-R Int : 248 ms QRS Dur : 096 ms QT Int : 350 ms P-R-T Axes : 077 029 049 degrees QTc Int : 403 ms Sinus rhythm with 1st degree A-V block Otherwise normal ECG Confirmed by ERASTO AGGARWAL, GIAN ([id number]), subeditor ALYSSA HE ([id number]) on 09/09/2021 9:23:06 AM Referred By: SHAILESH Confirmed By:GIAN MAURER MD
[2021-09-08] MEDS: 0.9% Normal Saline 1,000 ML 999 ML IV (02:19)
[2021-09-08] MEDS: Mag Hydrox/Al Hydrox/Simeth 30 ML UDC PO (02:19)
[2021-09-08 02:20] LABS: Absolute Lymphocyte Count 2.59 X10^3/uL (0.83-4.51); Absolute Neutrophil Count 6.1 X10^3/uL (2.0-7.7); Basophil# 0.09 X10^3/uL; Basophil% 0.9 % (0-1); Eosinophil# 0.17 X10^3/uL; Eosinophils% 1.7 % (0-5); Hematocrit 41.3 % (40-54); Hemoglobin 13.7 g/dL (13.0-16.5); Lymphocyte # 2.59 X10^3/ul (0.83-4.51); Lymphocyte % 26.6 % (19-41); Mean Corp Hgb Conc 33.2 g/dL (32-36); Mean Corpuscular Hgb 29.1 pg (27.0-32.0); Mean Corpuscular Volume 87.9 fL (80-94); Mean Platelet Vol. 10.5 fl (6.2-12.0); Monocyte# 0.82 X10^3/uL; Monocyte% 8.4 % (0-10); NRBC Flagged by Analyzer 0 % (0-5); Neutrophil # 6.05 X10^3/uL (2.7-7.7); Neutrophil % 62.1 % (47-70); Platelet Count 336 K/mm3 (150-450); RBC Distribution Width CV 12.6 % (11.6-14.6); RBC Distribution Width SD 40.8 fl (35.1-43.9); White Blood Count 9.8 K/mm3 (4.4-11.0)
--- NOTE | 2021-09-08 02:24 | EDS_ITS ---
HPI History of Present Illness Chief Complaint: Abd Pain Narrative Narrative: Patient is a 75-year-old male who states that he had left knee replacement surgery mid July. He states after that he noticed he was having bouts of of upper abdominal discomfort and nausea. He states that he saw his family doctor and advised him was most likely due to the oxycodone. He states that the oxycodone was stopped and he took the treatment as directed by his doctor and symptoms seem to improve. However in the past week symptoms have returned with generalized upper abdominal discomfort intermittently as well as sensation of gas distention and bouts of nausea without vomiting. Patient stat es he believes he most likely does has gastritis or an ulcer but he is going out of town in the next few days and as the symptoms have been recurrent over the past few weeks presents for evaluation. [facility] Medical History (Updated 09/08/21 @ 03:[address] Charlie Gonzalez DO) Carpal tunnel syndrome Dermatitis Elevated prostate specific antigen (PSA) Glaucoma Hypertrophy of prostate with urinary obstruction Pain in joint, lower leg Postinflammatory pulmonary fibrosis Sebaceous cyst Tinnitus Home Medications latanoprost 0.005 % eye drops 1 drp OPHTHALMIC DAILY 10/16/19 [History Last Taken Unknown] fluticasone furoate-vilanterol [Breo Ellipta] 1 inh INHALATION DAILY 09/08/21 [History Last Taken Unknown] pantoprazole [Protonix] 40 mg PO DAILY 30 Days #30 tab 09/08/21 [Rx Last Taken Unknown] Allergy/AdvReac Type Severity Reaction Status Date / Time No Known Allergies Allergy Verified 01/17/20 14:41 Family History Brother Cancer leukemia Seizures Brother CVA (cerebral vascular accident) Father Cancer Surgical History H/O colonoscopy History of tonsillectomy Social History (Updated 01/17/20 @ 15:[address] Henok Clemosn MD) Smoking Status: Never smoker alcohol intake: never substance use type: does not use caffeine: Yes ROS ROS ED Constitutional Constitutional ED: Denies chills or fever(s) ENT ENT ED: Denies sore throat Cardiovascular Cardiovascular: Denies chest pain Respiratory/Chest Respiratory/Chest: Denies cough or dyspnea Gastrointestinal Gastrointestinal: Reports abdominal pain and nausea; Denies constipation, diarrhea or vomiting Genitourinary Genitourinary ED: Denies dysuria or hematuria Musculoskeletal Musculoskeletal: Denies back pain or myalgias Integumentary Denies rash Neurologic Neurologic: Denies headache(s) Hematologic/Lymphatic Hematologic/Lymphatic: Denies easy bleeding or easy bruising EXAM Physical Exam Const Vital Signs: 09/08/21 01:47 Temperature 98.1 F Temperature Source Oral Pulse Rate 92 Respiratory Rate 16 Blood Pressure 142/84 H Blood Pressure Mean 103 Pulse Ox 96 Oxygen Delivery Method Room Air Positive well nourished and well developed General Appearance ED: well developed HEENT Reports moist mucous membranes Eyes PERRL and EOMs intact bilaterally Neck supple Resp normal respiratory effort and clear to auscultation bilaterally Cardio regular rate and regular rhythm Rate: other Other Details: Radial pulses are +2-4 bilaterally are equal and symmetric GI normal to inspection, nondistended, normoactive bowel sounds, non-tender, non- distended and no masses GI Narrative: No voluntary guarding or rigidity no pulsatile mass or fluid wave noted. No hernia palpated Auscultation: normoactive bowel sounds Palpation: soft Back/Spine no CVA tenderness Extremity normal to inspection Neuro oriented x3 and CN's II-XII intact bilaterally Sensorium / Orientation: alert Motor Exam: strength 5/5 throughout Psych mental status grossly normal Skin no rashes or lesions noted MDM MDM MDM Narrative Medical decision making narrative: Patient presented to the ER with stable vitals and a soft nonsurgical abdomen. However as he reported intermittent pain for approximately 2 weeks did elect to perform a basic abdominal work-up and add a cardiac enzymes secondary to his age and location of the upper abdominal pain. EKG was sinus rhythm and blood work revealed no clinically significant findings. CT scan of the abdomen pelvis showed multiple gallstones without any type of of surrounding secondary infection. On reevaluation the patient is resting comfortably and his abdomen remains soft and nonsurgical. The gallstones very well could be a cause of his recurrent pain so he will be instructed on proper diet. Protonix will be added as there is still a chance this could be gastritis in nature. However as he does not have signs of acute infection and he is not in any intractable pain there is no need for admission and patient can have this further worked up on an outpatient basis Lab Data Attestation: I reviewed the patient's lab results. Labs: Laboratory Results - last 24 hr 09/08/21 09/08/21 02:00 02:00 WBC 9.8 RBC 4.70 Hgb 13.7 Hct 41.3 MCV 87.9 MCH 29.1 MCHC 33.2 RDW Std Deviation 40.8 RDW Coeff of Kelsy 12.6 Plt Count 336 MPV 10.5 Immature Gran % (Auto) 0.300 Neut % (Auto) 62.1 Lymph % (Auto) 26.6 [place] % (Auto) 8.4 Eos % (Auto) 1.7 Baso % (Auto) 0.9 Absolute Neuts (auto) 6.1 Absolute Lymphs (auto) 2.59 Nucleated RBC % 0 Sodium 135 L Potassium 3.6 Chloride 103 Carbon Dioxide 25.0 Anion Gap 7 BUN 10 Creatinine 1.26 Estim Creat Clear Calc 53.91 Est GFR (MDRD) Af Amer 72 Est GFR (MDRD) Non-Af 60 BUN/Creatinine Ratio 7.9 L Glucose 151 H Calcium 9.6 Total Bilirubin 0.70 Direct Bilirubin 0.21 AST 24 ALT 33 Alkaline Phosphatase 113 Troponin I High Sens 31 Total Protein 7.4 Albumin 3.6 Globulin 3.8 Lipase 143 Radiography Diagnostic Testing: Clinical Impression(s) from Imaging Studies Abdomen/Pelvis CT 09/08/21 02:12 IMPRESSION: 1. No acute findings in the abdomen or pelvis. 2. Cholelithiasis. 3. Diverticular disease of the colon but no diverticulitis. Individualized dose optimization techniques were used for this CT. at 0307 Reported and signed by: Edgar Hubbard MD Electronically Signed: Edgar Hubbard MD at 3:06 EST , Discharge Plan Triage Chief Complaint: Abd Pain ED Provider: Charlie Gonzalez Dx/Rx/DC Orders Clinical Impression: Cholelithiasis, Abdominal pain, epigastric Instructions: What Are Gallstones, Treating Gallstones Prescriptions: New pantoprazole [Protonix] 40 mg tablet,delayed release (DR/EC) 40 mg PO DAILY 30 Days Qty: 30 RF: 0 No Action latanoprost 0.005 % drops 1 drp OPHTHALMIC DAILY RF: 0 Breo Ellipta 200-25 mcg/dose Blister With Device 1 inh INHALATION DAILY RF: 0 Primary Care Provider: Lissette Ledesma Referrals: Lissette Ledesma MD [Primary Care Provider] - Activity Restrictions/Additional Instructions: Please take the Protonix as directed to help prevent any gastritis/ulcer symptoms which could be the cause of your abdominal pain. Please also follow-up with her family doctor to discuss need for an outpatient ultrasound and/or HIDA scan to further assess the gallstones found on today's CT scan Disposition Disposition: Home, Self Care
[2021-09-08 02:35] LABS: AST(SGOT) 24 U/L (15-37); Alanine Aminotransfer ALT/SGPT 33 U/L (16-61); Albumin, Serum 3.6 g/dL (3.2-5.0); Alkaline Phosphatase 113 U/L (45-117); Anion Gap 7 (5-15); BUN 10 mg/dL (7-18); BUN/Creat Ratio 7.9 RATIO (10-20); Bilirubin, Direct 0.21 mg/dL (0.00-0.30); Calcium,Total 9.6 mg/dL (8.5-10.1); Chloride 103 mmol/L (98-107); Creatinine, Serum 1.26 mg/dL (0.70-1.30); EST Glomerular Filtration Rate 60 mL/min (>60); Est Glom Filt Rate - Afr Amer 72 mL/min (>60); Estimated Creatinine Clearance 53.91 ml/min; Globulin 3.8 g/dL (2.2-4.2); Glucose 151 mg/dL (74-106); Lipase 143 U/L (73-393); Potassium 3.6 mmol/L (3.5-5.1); Protein, Total 7.4 g/dL (6.4-8.2); Sodium Level 135 mmol/L (136-145); Troponin-I HS 31 pg/mL (3.0-78.0)
[2021-09-08 03:38] VITALS: BP 135/71; PULSE 76; RESP 18; O2SAT 97
[2021-09-08 04:01] VITALS: BP 139/71; PULSE 70; RESP 19; O2SAT 98
== END 2021-09-08 04:02 | disposition home or self-care (01) ==
PROVIDERS: Emergency Provider Emergency Medicine; PCP Internal Medicine; Visit Provider Emergency Medicine
DX: K80.20 Calculus of gallbladder without cholecystitis without obstruction (principal); H40.9 Unspecified glaucoma; Z96.652 Presence of left artificial knee joint
CPT/HCPCS: 74177; 80048; 80076; 83690; 84484; 85025; 93005; 96360; 99283; J7030; Q9967